=== PATIENT | male | born 1935 | race Caucasian/White ===

== ENCOUNTER 2018-08-30 13:06 | Emergency (ER) | payer OTHER ==
[~2018-08-30] VITALS: Ht 180.3 cm; Wt 74.8 kg
--- OUTSIDE RECORDS SUMMARY | 2018-08-30 13:13 | XMS REPORT | Clinical Summary ---
Author Author [facility] Address Unknown Phone Unavailable Care Team Providers Care Scrap Iron Loader Name Role Phone Asked, No Pcp PCP Unavailable Allergies No Known Allergies Medications End Date Status Medication Sig Dispensed Refills Start Date Active amLODIPine (NORVASC) 5 mg Take 5 mg by 0 tablet mouth every morning. Active clonIDINE (CATAPRES-TTS) Place 1 patch 0 0.2 mg/24 hr on the skin once a week. sunday Active donepezil (ARICEPT) 10 MG Take 10 mg by 0 tablet mouth nightly. Active cholecalciferol, vitamin Take 2,000 0 D3, (VITAMIN D3) 1,000 Units by unit tablet mouth 2 (two) times a day. Active furosemide (LASIX) 20 mg Take 20 mg by 0 tablet mouth 2 (two) times a day. Active lactulose 10 gram/15 mL Take 30 g by 0 (15 mL) solution mouth 3 (three) times a day. Active lisinopril Take 10 mg by 0 (PRINIVIL,ZESTRIL) 10 mg mouth 2 (two) tablet times a day. Active multivitamin (THERAGRAN) Take 1 tablet 0 tablet by mouth daily. Active mirtazapine (REMERON) 30 Take 30 mg by 0 MG tablet mouth nightly. Active acetaminophen (TYLENOL) Take 650 mg 0 325 MG tablet by mouth every 6 (six) hours as needed for fever. Active Problems Not on file Encounters Care Team Description Date Type Specialty Victorino Hunt MD Chronic kidney disease, unspecified CKD stage (Primary Dx); Alzheimer's dementia without behavioral disturbance, unspecified timing of dementia onset 08/23/2018 Emergency Emergency Medicine after 08/29/2017 Social History Date Tobacco Use Types Packs/Day Years Used Never Smoker Smokeless Tobacco: Never Used Alcohol Use Drinks/Week oz/Week Comments Yes Sex Assigned at Date Recorded Not on file Industry Job Start Date Occupation Not on file Not on file Not on file Travel End Travel History Travel Start No recent travel history available. Last Filed Vital Signs Time Taken Vital Sign Reading 08/23/2018 11:18 PM [employer] Blood Pressure 135/64 08/23/2018 11:18 PM [employer] Pulse 75 08/23/2018 11:18 PM [employer] Temperature 36.4 C (97.5 F) 08/23/2018 11:18 PM [employer] Respiratory Rate 17 08/23/2018 11:18 PM [employer] Oxygen Saturation 99% - Inhaled Oxygen - Concentration 08/23/2018 2:34 PM [employer] Weight 74.8 kg (165 lb) 08/23/2018 2:34 PM [employer] Height 182.9 cm (6') 08/23/2018 2:34 PM [employer] Body Mass Index 22.38 Plan of Treatment Not on file Procedures Comments Procedure Name Priority Date/Time Associated Diagnosis ESTIMATED GFR STAT 08/23/2018 5:00 PM [employer] COMPREHENSIVE METABOLIC STAT 08/23/2018 PANEL 3:40 PM [employer] HC COMPLETE BLD COUNT STAT 08/23/2018 W/AUTO DIFF 3:40 PM [employer] after 08/29/2017 Results * Estimated GFR (08/23/2018 5:00 PM [employer]) Estimated GFR 30 (A) mL/min/1.73 m2 [facility] Comment: [facility] CatergoryUnitsInte rpretation G1 >=90 Normal or high G2 60-89Mildly decreased [id number] Mildly to moderately decreased [id number] Moderately to severely decreased G4 15-29Severely decreased G5 <15Kidney failure The eGFR was calculated using the Chronic Kidney Disease Epidemiology Collaboration (CKD-EPI) equation. Interpretation is based on recommendations of the National Kidney Foundation-Kidney Disease Outcomes Quality Initiative (NKF-KDOQI) published in 2014. Specimen Plasma specimen Narrative Performed At SPECIMEN WAS HEMOLYZED AND RECOLLECTED AT 1700 BY HFW [facility] DEPARTMENT OF PATHOLOGY AND GENOMIC MEDICINE Performing Organization Address City/State/Zipcode Phone Number [facility] DEPARTMENT OF [address] [place] [address] PATHOLOGY AND GENOMIC MEDICINE [facility] [address] * CBC with platelet and differential (08/23/2018 3:40 PM [employer]) WBC 9.6 4.2 - 11.0 k/uL [facility] RBC 3.97 (L) 4.04 - 5.86 m/uL [facility] HGB 11.3 (L) 13.0 - 17.3 g/dL [facility] HCT 37.2 34.0 - 45.0 % [facility] MCV 93.7 80.0 - 98.0 fL [facility] MCH 28.5 27.0 - 34.0 pg [facility] MCHC 30.4 (L) 31.5 - 36.5 g/dL [facility] RDW - SD 45.4 37.0 - 51.0 fL [facility] MPV 11.1 (H) 7.4 - 10.4 fL [facility] Platelet count 294 150 - 400 k/uL [facility] Nucleated RBC 0.00 /100 WBC [facility] Neutrophils 65.6 36.0 - 66.0 % [facility] Lymphocytes 22.6 (L) 24.0 - 44.0 % [facility] Monocytes 9.6 (H) 0.0 - 6.0 % [facility] Eosinophils 0.8 0.0 - 6.0 % [facility] Basophils 0.8 0.0 - 1.2 % [facility] Immature granulocytes 0.9 0.0 - 1.0 % [facility] Specimen Blood Performing Organization Address City/State/Zipcode Phone Number [facility] DEPARTMENT OF [address] [place] [address] PATHOLOGY AND GENOMIC MEDICINE [facility] [address] * Comprehensive metabolic panel (08/23/2018 3:40 PM [employer]) Sodium 140 135 - 150 mEq/L [facility] Potassium 4.3 3.5 - 5.0 mEq/L [facility] Chloride 100 98 - 112 mEq/L [facility] CO2 27 24 - 31 mmol/L [facility] Anion gap 13@ANIO 7 - 15 mEq/L [facility] BUN 31 (H) 7 - 18 mg/dL [facility] Creatinine 1.97 (H) 0.70 - 1.20 mg/dL [facility] Glucose 162 (H) 65 - 100 mg/dL [facility] Calcium 10.1 8.8 - 10.2 mg/dL [facility] Protein 6.7 6.3 - 8.3 g/dL [facility] Albumin 3.2 (L) 3.5 - 5.0 g/dL [facility] A/G ratio 0.9 0.7 - 3.8 [facility] Alkaline phosphatase 258 (H) 0 - 129 U/L [facility] AST 45 10 - 50 U/L [facility] ALT 40 5 - 50 U/L [facility] Total bilirubin 1.0 0.2 - 1.2 mg/dL [facility] Specimen Plasma specimen Narrative Performed At SPECIMEN WAS HEMOLYZED AND RECOLLECTED AT 1700 BY [facility] DEPARTMENT OF PATHOLOGY AND GENOMIC MEDICINE Performing Organization Address City/State/Zipcode Phone Number [facility] DEPARTMENT OF [facility] [place] [address] PATHOLOGY AND GENOMIC MEDICINE [place] [id number] [place] [id number] [place] [address] after 08/29/2017 Insurance Payer Benefit Subscriber ID Type Phone Address Plan / Group MEDICARE MEDICARE xxxxxxxxxxx Medicare [place], [place] PART A [place] B MEDICAID MEDICAID xxxxxxxxx Medicaid Advance Directives Patient has advance care planning documents on file. For more information, pleas e contact: Jaspreet Craven [address] [place] [address]
--- OUTSIDE RECORDS SUMMARY | 2018-08-30 13:13 | XMS REPORT ---
Author Author [facility] Address Unknown Phone Unavailable Care Team Providers Care Senior Cost Estimator Name Role Phone Unavailable Unavailable Payers Payer Name Policy Type Policy Number Effective Date Expiration Date Problems This patient has no known problems. Allergies, Adverse Reactions, Alerts Allergy Name Allergy Type Status Severity Reaction(s) Onset Date Inactive Date Treating Clinician Comments No Known Allergies DA Active U 2015-06-15 00:00:00 Medications This patient has no known medications.
[2018-08-30 14:09] LABS: BASOPHILS # (AUTO) 0.1 (0.0-0.1); EOSINOPHILS # (AUTO) 0.2 (0.0-0.4); EOSINOPHILS % 1.9 % (0.0-6.0); HEMATOCRIT 40.6 % (38.2-49.6); LYMPHOCYTES # (AUTO) 2.1 (1.0-3.2); LYMPHOCYTES % 25.9 % (18.0-39.1); MEAN CORPUSCULAR VOLUME 90.6 fL (81-99); MONOCYTES % 12.3 % (4.4-11.3); NEUTROPHILS # (AUTO) 4.6 (2.1-6.9); NEUTROPHILS % 58.4 % (38.7-80.0); PLATELET COUNT 298 x10e3/uL (140-360); RED BLOOD COUNT 4.48 x10e6/uL (4.3-5.7); RED CELL DISTRIBUTION WIDTH 13.1 % (11.7-14.4)
[2018-08-30 14:26] LABS: ALBUMIN 3.8 g/dL (3.5-5.0); ANION GAP 18.2 mmol/L (8-16); CALCIUM 10.1 mg/dL (8.4-10.2); CREATININE, SERUM 1.69 mg/dL (0.72-1.25); POTASSIUM 4.2 mmol/L (3.5-5.1)
[2018-08-30] MEDS ORDERED: SODIUM CHLORIDE 0.9% 1000ML 1,000 ML IV STA (14:36)
== END 2018-08-30 17:31 | disposition home or self-care (01) ==
LOC: ER 13:06
DX: R74.0 Nonspecific elevation of levels of transaminase and lactic acid dehydrogenase [LDH] (principal); N18.9 Chronic kidney disease, unspecified; F03.90 Unspecified dementia, unspecified severity, without behavioral disturbance, psychotic disturbance, mood disturbance, and anxiety; I10 Essential (primary) hypertension; K21.9 Gastro-esophageal reflux disease without esophagitis
CPT/HCPCS: 36415; 80053; 82140; 85025; 99284; J7030